=== PATIENT | female | born 1960 | race Asian ===

== ENCOUNTER → 2016-10-17 | Outpatient (CLI) | payer BC ==
[~2016-10-17] MED LIST: NO HOME MEDICATIONS
== END ==
LOC: MC.RAD 07:00
DX: Z12.31 Encounter for screening mammogram for malignant neoplasm of breast (principal)

== ENCOUNTER → 2017-02-14 | Outpatient (REF) | LOC: WSOH 16:00 | DX: Z01.89 Encounter for other specified special examinations (principal) ==

== ENCOUNTER → 2017-10-20 | Outpatient (CLI) | payer BC | LOC: MC.RAD 07:00 | DX: Z12.31 Encounter for screening mammogram for malignant neoplasm of breast (principal) ==

== ENCOUNTER → 2018-11-30 | Outpatient (CLI) | payer BC | LOC: MC.RAD 06:56 | DX: Z12.31 Encounter for screening mammogram for malignant neoplasm of breast (principal) ==

== ENCOUNTER 2021-08-23 14:15 | Outpatient (RCR) | payer OTHER | END 2021-09-07 | disposition home or self-care (01) | LOC: WSOH | DX: M25.561 Pain in right knee (principal); Y99.0 Civilian activity done for income or pay ==

== ENCOUNTER → 2022-03-05 | Outpatient (CLI) | payer BC | LOC: MC.RAD 10:31 | DX: Z12.31 Encounter for screening mammogram for malignant neoplasm of breast (principal) ==

== ENCOUNTER → 2024-04-21 | Outpatient (CLI) | payer BC | LOC: MC.RAD 06:50 | DX: Z12.31 Encounter for screening mammogram for malignant neoplasm of breast (principal) ==